=== PATIENT | female | born 1965 | race African-American/Black ===

== ENCOUNTER → 2019-01-16 | Day surgery (SDC) | payer OTHER, MEDICARE ==
[~2019-01-16] MED LIST: DEXAMETHASONE SOD PHOS INJ 4 MG/ML VIAL ONE; EPINEPHRINE HCL 1:1000 1ML 1 MG/ML AMP ONE; FENTANYL CITRATE/PF 100MCG/2 ML INJ ONE; GLYCOPYRROLATE INJ 1MG/ 5 ML SYR ONE; KETOROLAC TROMETHAMINE 30 MG/ML VIAL ONE; LIDOCAINE 1% W/EPINEPHRINE 20 ML VIAL ONE; LIDOCAINE HCL 2% LOCAL INJ 5 ML SDV VIAL INJ ONE; MIDAZOLAM HCL 2 MG/2 ML VIAL ONE; NEOSTIGMINE 5 MG/5ML SYR ONE; ONDANSETRON HCL INJ 2MG/ML 2ML 2 MG/ML VIAL ONE; PROPOFOL IV EMULSION 10 MG/ML 20 ML VIAL ONE; ROCURONIUM BROMIDE 10 MG/ML 5ML VIAL ONE; SEVOFLURANE INHAL SOLN 250 ML PEN BTL ONE
--- OUTSIDE RECORDS SUMMARY | 2019-01-16 07:46 | XMS REPORT | Summary of Care ---
Author Author ELMO PENALOZA M.D. Organization Unknown Address Unknown Phone Unavailable Care Team Providers Care Routeman Name Role Phone ELMO PENALOZA M.D. 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 * Start : 11-Apr-2017 Active Carvedilol 12.5 MG Oral Tablet * Refills: 0 R.N. Active Pantoprazole Sodium 40 MG Oral Tablet Delayed Release * Refills: 0 R.N. Active Benicar HCT 20-12.5 MG Oral Tablet * Refills: 0 R.N. Active LORazepam 2 MG Oral Tablet * Refills: 0 R.N. Active Hydrocodone-Acetaminophen 10-325 MG Oral Tablet * Refills: 0 R.N. Active Gabapentin 300 MG Oral Capsule * Refills: 0 R.N. Active FentaNYL Citrate (PF) SOLN * Refills: 0 R.N. Active B12 Liquid Health Booster 1000 MCG/15ML LIQD * Refills: 0 R.N. Active Allergies and Adverse Reactions Name Dates Details No Known Drug Allergies (Allergy) Status: Active Procedures Procedure Dates Details Procedures not documented Immunization Name Dates Details Immunizations not documented Social History Name Dates Details - Status: Name Dates Details Never smoker Vital Signs Date Test Result Details 01-Aug-20179:32 BP Systolic 128 mm[Hg] Status: Comments: Location: RUE; Position: Sitting BP Diastolic 82 mm[Hg] Status: Comments: Location: RUE; Position: Sitting Height 65 in Status: Weight 178 lb Status: Body Mass Index Calculated 29.62 kg/m2 Status: Body Surface Area Calculated 1.88 m2 Status: Temperature 98.6 f Status: Comments: Method: Oral Heart Rate 73 /min Status: Comments: Location: R Brachial Artery; Results Date Description Value Details :46 [QL] PTH, INTACT (WITHOUT CALCIUM) Parathyroid Hormone Intact 119.5 pg/ml (Above high threshold) Range: 18.4-80.1 :46 [QLH] CMP W/EGFR Sodium Level 141 {mEq/l} Range: 135-145 Potassium Level 4.6 {mEq/l} Range: 3.5-5.1 Chloride Level 108 {mEq/l} Range: 95-109 Carbon Dioxide 26 {mEq/l} Range: 24-32 AGAP 11.6 {mEq/l} Range: 10.0-20.0 Glucose Lvl 77 mg/dl Range: 70-99 Comments: Adult reference range values reflect the clinical guidelinesof the [place] [employer]. Creatinine Lvl 1.00 mg/dl Range: 0.50-1.40 Blood Urea Nitrogen 17 mg/dl Range: 7-22 BUN/Creatinine Ratio 17 Range: 6-25 Total Protein 6.9 g/dl Range: 6.4-8.4 Albumin Lvl 3.7 g/dl Range: 3.5-5.0 Globulin 3.2 g/dl Range: 2.7-4.2 A/G Ratio 1.2 Range: 0.7-1.6 Calcium Level Total 8.7 mg/dl Range: 8.5-10.5 ALT 22 u/l Range: 0-65 AST 20 u/l Range: 0-37 Alk Phos 55 u/l Range: 39-136 Bili Total 0.3 mg/dl Range: 0.2-1.3 eGFR 65 {ML/MIN/1.7} Comments: The eGFR is calculated using the CKD-EPI formula. In most young, healthyindividuals the eGFR will be >90 mL/min/1.73m2. The eGFR declines with age. AneGFR of 60-89 may be normal in some populations, particularly the elderly, forwhom the CKD-EPI formula has not been extensively validated. Use of the eGFR isnot recommended in the following populations:Individuals with unstable creatinine concentrations, including patients and those with serious co-morbid conditions.Patients with extremes in muscle mass or diet.The data above are obtained from the National Kidney Disease Education Program(NKDEP) which additionally recommends that when the eGFR is used in patientswith extremes of body mass index for purposes of drug dosing, the eGFR shouldbe multiplied by the estimated BMI. [id number]:46 [QL] MAGNESIUM Magnesium Level 2.2 mg/dl Range: 1.8-2.4 [id number]:46 [QL] VITAMIN D, 25-HYDROXY, LC/MS/MS Vitamin D, 25-OH, Total 20.2 ng/ml (Below low threshold) Range: 30.0-100.0 Comments: Reference range is based on recommendations in the [employer] Clinical Practice Guideline (J Clin Endocrinol [id number];96:9879-5194) Plan of Care Name Dates Details Planned Observations Planned Goals not documented Planned Encounters Appointment; JONATAN CARABALLO M.D. On: 05-Aug-2017 10:45 Appointment; ELMO PENALOZA M.D. On: 03-Feb-2018 9:15 Interventions Provided Medication Changes* Vitamin D (Ergocalciferol) 12802 UNIT Oral Capsule - Renew Discussion/Summary* PTH looks much better, Vit D is still low. Let's increase her ergo to BIW probably indefinately. Instructions Name Dates Details Instructions not documented Encounters Appointment; JONATAN CARABALLO M.D. Encounter Diagnosis: Problem not documented On: 17-Dec-2015 10:45 Appointment; JONATAN CARABALLO M.D. Encounter Diagnosis: Problem not documented On: 01-Sep-2016 10:15 Appointment; JONATAN CARABALLO M.D. Encounter Diagnosis: Problem not documented On: 08-Sep-2016 10:45 Appointment; JONATAN CARABALLO M.D. Encounter Diagnosis: Problem not documented On: 03-Nov-2016 14:15 Appointment; JONATAN CARABALLO M.D. Encounter Diagnosis: Problem not documented On: 01-Dec-2016 10:45 Appointment; JONATAN CARABALLO M.D. Encounter Diagnosis: Problem not documented On: 15-Dec-2016 10:30 Appointment; JONATAN CARABALLO M.D. Encounter Diagnosis: Problem not documented On: 30-Mar-2017 14:30 Appointment; ROBERTO GUSTAFSON RD Encounter Diagnosis: Problem not documented On: 11-May-2017 9:00 Appointment; JONATAN CARABALLO M.D. Encounter Diagnosis: Problem not documented On: 15-Jun-2017 10:45 Appointment; ELMO PENALOZA M.D. Encounter Diagnosis: Problem not documented On: 01-Aug-2017 9:00
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
--- OUTSIDE RECORDS SUMMARY | 2019-01-16 07:46 | XMS REPORT | Summary of Care ---
Author Author ROBERTO GUSTAFSON RD Organization Unknown Address Unknown Phone Unavailable Care Team Providers Care Tin Pourer Name Role Phone ROBERTO GUSTAFSON RD Unavailable Unavailable JONATAN CARABALLO M.D. Unavailable Unavailable DEUCE MAO MD Unavailable [...] Vitamin D deficiency (268.9, E55.9) Status: Active Medications Name Dates Details Sulfamethoxazole-Trimethoprim 800-160 MG Oral Tablet TAKE 1 TABLET TWICE DAILY UNTIL FINISHED. Quantity: 14 JONATAN CARABALLO M.D. * Start : 03-Nov-2016 Active Nystatin 323707 UNIT/GM External Cream APPLY AND RUB IN A THIN FILM TO AFFECTED AREAS TWICE DAILY.(AM AND PM). * Quantity: 30 Refills: 0 JONATAN CARABALLO M.D. * Start : 03-Nov-2016 Active 15 GM Tube Allergies and Adverse Reactions Name Dates Details No Known Drug Allergies (Allergy) Status: Active Procedures Procedure Dates Details Procedures not documented Immunization Name Dates Details Immunizations not documented Social History Name Dates Details Unknown if ever smoked Vital Signs Date Test Result Details No Known Vitals to report Results Date Description Value Details Results not documented Plan of Care Name Dates Details Planned Observations Planned Goals not documented Instructions Name Dates Details Instructions not documented [...]
[2019-01-16 10:50] VITALS: BP 137/85
--- NOTE | 2019-01-16 12:28 | Operative Report ---
DATE OF PROCEDURE: 01/16/2019 SURGEON: Hermelindo Cardoza MD PREOPERATIVE DIAGNOSES: Chronic sinusitis and nasal obstruction. POSTOPERATIVE DIAGNOSES: Chronic sinusitis and nasal obstruction. PROCEDURES PERFORMED: Bilateral anterior and posterior ethmoidectomy, bilateral maxillary sinus antrostomy, bilateral resection of tissue maxillary antrum, bilateral resection of kaylan bullosa. ANESTHESIA: Anesthesiology Group. INDICATIONS: This 53-year-old female has history of nasal obstruction, postnasal drip discharge from her nose. There is a question of pressure on her sinus on her optic nerve per her active directory systems administrator. Upon examination, she was noted to have hypertrophy of the inferior turbinate. A CT scan of paranasal sinuses done before surgery showed the patient has involvement of the ethmoid sinuses, worse on the left side involving the mid and posterior ethmoid sinuses, and maxillary sinus involvement on both sides. She was also noted to have kaylan bullosa. Her condition has been treated with more than 12 weeks of antibiotics, topical nasal steroid, decongestant with no improvement of the condition. It was decided endoscopic sinus surgery and other necessary procedure will be beneficial for her. DESCRIPTION OF PROCEDURE: The patient was taken to the operating room, put under general anesthesia, endotracheally intubated. The nose was injected with 1% Xylocaine with 1:100,000 epinephrine for hemostasis. Epinephrine soaked pledget was inserted in the nose and subsequently removed. The left paranasal sinuses were approached first. Middle turbinate was medialized. The bulla ethmoidalis was entered. Anterior and posterior ethmoid sinuses were dissected in a systematic fashion. The mid and posterior ethmoid sinus on the left side, inflamed tissue was noted. These were dissected using the microshaver. Care was taken during dissection to ascertain the orbit was not entered. Using the microshaver, the lateral portion of the middle turbinate was dissected, thereby resecting the kaylan bullosa. Using a curved probe, the natural ostium of the maxillary sinus was entered. This was enlarged anteriorly and posteriorly using backbiter and Thru-Cut forceps respectively. Using a 45-degree telescope, the maxillary antrum was examined. Inflamed tissue in maxillary sinus was dissected using the 120-degree tip of the microshaver. The right paranasal sinuses were approached. The middle turbinate was medialized and the bulla ethmoidalis was entered. The anterior and posterior ethmoid sinuses were dissected in systematic fashion. In the posterior portion of the ethmoid sinus, inflamed tissue was noted. This was dissected using the microshaver. Care was taken during dissection to ascertain, the orbit was not entered. Using the microshaver, the lateral portion of the middle turbinate was dissected by opening up the kaylan bullosa. The maxillary antrum was opened before. This was enlarged using the microshaver. Using the 45-degree telescope, the maxillary antrum was examined. The inflamed tissue was noted in the floor of the maxillary antrum. This was dissected using 120-degree tip of the microshaver. The nasopharynx and nasal cavity were reexamined. Inflamed tissue was noted in the nasopharynx. This was biopsied using a Xu-Cut forceps and sent for permanent section. NasoPore was inserted in the sinus cavities on either side. This was done to prevent synechiae formation and for hemostasis. The patient tolerated the above procedure well. Estimated blood losswas about 20 mL. She was given 20 mg of Decadron intraoperatively. The patient was able to be transferred to recovery room in stable condition. MD CAROLA Uribe/LENIN /[id number]
--- NOTE | 2019-01-17 14:14 | Pre Op History & Physical ---
DATE OF SURGERY: 01/16/2019 CHIEF COMPLAINT: Chronic sinusitis and nasal obstruction. HISTORY OF PRESENT ILLNESS: This 53-year-old female has history of nasal obstruction, postnasal drip discharge from her nose. The patient has been seeing Dr. Ortiz for her vision changes. It is questionable whether there is sinus problem affecting her vision. The patient has frontal and maxillary pain. She denies any nasal obstruction. She has postnasal drip. The patient has slight decreased sense of smell. She has no injury to the nose. The patient also has been seen by a neurologist regarding her memory loss. The patient has a history of lupus. She has been treated with topical nasal steroid, decongestant, antibiotics by myself over the past 12 weeks including Augmentin with no improvement of the condition. A CT scan of the paranasal sinuses done before surgery, showed the patient has chronic sinusitis, involvement of the ethmoid sinuses on both sides worse on the left, maxillary sinus involvement on both sides and slight deviated nasal septum. REVIEW OF SYSTEMS: System review showed no recent cardiovascular, respiratory, or GI problem. PAST MEDICAL HISTORY: The patient has a history of hypertension and lupus. PAST SURGICAL HISTORY: The patient has previous and cholecystectomy. ALLERGIES: SHE IS ALLERGIC TO LATEX. MEDICATIONS: She is on: 1. Carvedilol. 2. Pantoprazole. 3. Benicar. 4. Lorazepam. 5. B12. 6. . 7. Amitriptyline. 8. Levorphanol. SOCIAL HISTORY: She is a nonsmoker and nondrinker. FAMILY HISTORY: Noncontributory. PHYSICAL EXAMINATION: VITAL SIGNS: On examination, the patient's vital signs were within normal limits. HEENT: Ear exam showed normal tympanic membranes bilaterally. Nasal exam showed hypertrophy of the inferior turbinate. Oropharynx and oral cavity showed 2+ tonsils bilaterally with Mallampati level 2. NECK: Showed no lymph node or thyroid palpable. CHEST: Showed good air entry bilaterally. CARDIOVASCULAR: Showed S1 and S2. No murmur noted. OPERATIONS PROGRAM MANAGER: Showed cranial nerves II through XII were within normal limits. ASSESSMENT AND PLAN: Ms. Kidd has chronic sinusitis and nasal obstruction, which has been resistant to conservative therapy. The suggested treatment is endoscopic sinus surgery, septoplasty, resection of inferior turbinate and other necessary procedures. Complication of procedure includes, but not limited to bleeding, infection, CSF leak, blindness, double vision, meningitis, septal perforation, septal hematoma, persistent nasal obstruction, persistent nasal crusting, nasal deformity, recurrence of the sinus problem and no improvement of her vision. Alternatives will be continued observation, continued antibiotic therapy, topical nasal steroid therapy, systemic steroid therapy, and decongestant. The patient has elected to undergo the surgical procedure. Hermelindo Cardoza MD DK/MODL /[id number] cc: Clyde Ortiz M.D.
== END | disposition home or self-care (01) ==
LOC: OR 07:44
PROVIDERS: ATTEND Otolaryngology Otolaryngology/Facial Plastic Surgery
DX: J32.0 Chronic maxillary sinusitis (principal); J34.89 Other specified disorders of nose and nasal sinuses; J32.2 Chronic ethmoidal sinusitis; I10 Essential (primary) hypertension; M32.9 Systemic lupus erythematosus, unspecified; K21.9 Gastro-esophageal reflux disease without esophagitis; Z91.040 Latex allergy status; F41.9 Anxiety disorder, unspecified
CPT/HCPCS: 31240; 31255; 31267; 88305; 93005; J0171; J1100; J1885; J2001; J2250; J2405; J2704; J3010; J3490; 88304